=== PATIENT | female | born 1965 | race Caucasian/White ===

== ENCOUNTER → 2023-03-23 12:27 | Outpatient (REF) | payer OTHER, SELFPAY | LOC: WDC 12:27 | PROVIDERS: ATTENDING PHYSICIAN Physician Assistant Medical | DX: Z12.31 Encounter for screening mammogram for malignant neoplasm of breast (principal) | CPT/HCPCS: 77063; 77067 ==

== ENCOUNTER → 2024-02-18 11:19 | Outpatient (REF) | payer OTHER, SELFPAY ==
[2024-02-18 20:38] LABS: Rubella Negative
[2024-02-20 11:01] LABS: Quantiferon Mitogen minus NIL 9.93 IU/mL; Quantiferon NIL 0.07 IU/mL; Quantiferon Plus TB1 minus NIL 0.02 IU/mL (<=0.34); Quantiferon Plus TB2 minus NIL 0.03 IU/mL (<=0.34); Quantiferon TB Gold Plus Negative (Negative)
[2024-02-20 14:16] LABS: Mumps Virus IgG Equivocal; Rubeola (Measles) IgG Positive; Varicella Zoster IgG (VZV) Positive
== END ==
LOC: OHS 11:19
PROVIDERS: ATTENDING PHYSICIAN Nurse Practitioner Family
DX: Z23 Encounter for immunization (principal)
CPT/HCPCS: 36415; 86480; 86735; 86762; 86765; 86787

== ENCOUNTER → 2024-04-01 12:43 | Outpatient (REF) | payer OTHER, SELFPAY | LOC: HWWDC 12:43 | PROVIDERS: ATTENDING PHYSICIAN Obstetrics & Gynecology Gynecology; FAMILY PHYSICIAN Physician Assistant Medical | DX: Z12.31 Encounter for screening mammogram for malignant neoplasm of breast (principal) | CPT/HCPCS: 77063; 77067 ==

== ENCOUNTER → 2024-04-08 08:45 | Outpatient (REF) | payer OTHER, SELFPAY | LOC: WDC 08:45 | PROVIDERS: ATTENDING PHYSICIAN Obstetrics & Gynecology Gynecology; FAMILY PHYSICIAN Physician Assistant Medical | DX: R92.8 Other abnormal and inconclusive findings on diagnostic imaging of breast (principal) | CPT/HCPCS: 76642; 77065 ==

== ENCOUNTER → 2024-04-10 06:25 | Outpatient (REF) | payer OTHER, SELFPAY ==
--- NOTE | 2024-04-10 09:51 | OID.BR.INTR ---
[facility] Breast Navigator - Initial
- -
Date of Contact: 04/10/24
Met with patient. Patient given written information on navigator services and support services available at [facility]. Will follow up as needed per protocol.
== END ==
LOC: WDC 06:25
PROVIDERS: ATTENDING PHYSICIAN Obstetrics & Gynecology Gynecology; FAMILY PHYSICIAN Physician Assistant Medical
DX: R92.1 Mammographic calcification found on diagnostic imaging of breast (principal)
CPT/HCPCS: 88305; 19081; 76098; 88342; 88360; A4648

== ENCOUNTER → 2024-04-21 12:49 | Outpatient (REF) | payer OTHER, SELFPAY | LOC: WDC 12:49 | PROVIDERS: ATTENDING PHYSICIAN Surgery; FAMILY PHYSICIAN Physician Assistant Medical | DX: R92.2 Inconclusive mammogram (principal); N60.91 Unspecified benign mammary dysplasia of right breast | CPT/HCPCS: 76641 ==

== ENCOUNTER → 2024-04-28 07:08 | Outpatient (REF) | payer OTHER, SELFPAY | LOC: WDC 07:08 | PROVIDERS: ATTENDING PHYSICIAN Surgery; FAMILY PHYSICIAN Physician Assistant Medical | DX: N60.91 Unspecified benign mammary dysplasia of right breast (principal) | CPT/HCPCS: 19281; A4648 ==

== ENCOUNTER 2024-04-29 06:08 | Day surgery (SDC) | payer OTHER, SELFPAY ==
[2024-04-21 12:18] LABS: Hematocrit 39.6 % (37.0-47.0); Hemoglobin 13.1 g/dL (12.0-16.0); Mean Corp Hgb Conc. 33.1 g/dL (33.0-37.0); Mean Corpuscular Hgb 30.2 pg (27.0-31.0); Mean Corpuscular Volume 91.2 fL (81.0-99.0); Mean Platelet Volume 9.6 fL (7.4-10.4); Platelet Count 383 10^3/uL (130-400); Red Blood Cell Count 4.34 10^6/uL (4.20-5.40); Red Cell Dist. Width 12.7 % (11.5-14.5); White Blood Cell Count 4.7 10^3/uL (4.8-10.8)
[2024-04-21 12:41] LABS: ALT (SGPT) 11 U/L (0-35); AST (SGOT) 17 U/L (14-36); Albumin 3.9 g/dl (3.5-5.0); Alkaline Phosphatase 60 U/L (38-126); Blood Urea Nitrogen 11 mg/dl (7-17); Calcium 9.3 mg/dl (8.4-10.2); Carbon Dioxide 25 mmol/L (22-30); Chloride 106 mmol/L (98-107); Glucose 87 mg/dl (70-99); Potassium 4.1 mmol/L (3.5-5.1); Sodium 137 mmol/L (135-145); Total Bilirubin 0.6 mg/dl (0.2-1.3); Total Protein 6.2 g/dl (6.3-8.2); eGFR > 60.00
[2024-04-21 12:58] LABS: Prealbumin (Transthyretin) 25.1 mg/dl (17.6-36.0)
[2024-04-21 13:11] LABS: Vitamin D, 25-OH*** 30.9 ng/mL (30-80)
[2024-04-21 13:54] VITALS: BMI 21.2
[2024-04-29 07:00] VITALS: BMI 21.2
[2024-04-29 07:02] VITALS: BP 114/74
[2024-04-29] MEDS: TYLENOL 1000 MG PO (07:08)
[2024-04-29] MEDS: NORMOSOL-R/PLASMALYTE-A 1000 IV (07:15)
[2024-04-29 08:36] VITALS: BP 102/61
--- NOTE | 2024-04-29 08:36 | W.IMMPOSTOP ---
Surgical Immed Post Op Note
-
Primary Surgeon: Carol
Assisting Surgeon: None
Pre-op Diagnosis: Right breast atypical ductal hyperplasia
Post-op Diagnosis: Right breast atypical ductal hyperplasia
Procedure Performed: Right localized lumpectomy
Anesthesia Type: TIVA
Specimen / Cultures: Right lumpectomy
Estimated Blood Loss: 2cc
Complications: None
Operative Findings: Clip and reflector in specimen
--- NOTE | 2024-04-29 08:38 | OR.RPT ---
Operative Report
Operative Report
Date of Surgery: 04/29/24
Surgeon: Carol
Pre-Op DX: Right breast atypical ductal hyperplasia
Post-Op DX: Right breast atypical ductal hyperplasia
Procedure: Right localized lumpectomy
The patient is a 59-year-old female who experienced an interval change on screening mammography leading to stereotactic core biopsy showing atypical ductal hyperplasia of the right breast. She presents now for right localized lumpectomy and
possible oncoplastic closure. On the day prior to the procedure the patient presented to the breast imaging center and had a Radha reflector placed.
The day of surgery the patient presented to same-day surgical services. She was prepped and DVT and antibiotic prophylaxis were provided. She verified site and procedure. She was taken to the operating room and in the supine position intravenous
sedation was delivered.
Appropriate timeout was performed by all staff and the field was tissues were anesthetized with 1% lidocaine plain. A superior circumareolar incision was made sharply with the blade and oncoplastic plane was entered and elevated using the cautery.
The RADHA probe was used to sounded out the signal and a wide lumpectomy was performed using the cautery. Time out of body was noted and the specimen was oriented for the pathologist. There was a strong Radha signal within the specimen. Specimen
radiography confirmed the presence of biopsy clip and Radha reflector within it.
Hemostasis was maintained with the cautery. Marcaine 0.5% plain was instilled and the wound was closed with a simple interrupted 3-0 plain on deep intermediate and subcutaneous tissue and skin was closed with a running subcuticular 4-0 Monocryl.
Surgical glue and a sterile compressive dressing were applied. All sponge needle instrument counts were correct and the patient was transferred back to the same-day surgical services for recovery
()
[2024-04-29 08:45] VITALS: BP 97/60
[2024-04-29 09:00] VITALS: BP 106/72
[2024-04-29] MEDS: ROXICODONE 5 MG PO (09:04)
[2024-04-29 09:16] VITALS: BP 114/78
== END 2024-04-29 09:40 | disposition home or self-care (01) ==
LOC: SDS 06:08
PROVIDERS: ATTENDING PHYSICIAN Surgery; FAMILY PHYSICIAN Physician Assistant Medical
DX: N60.91 Unspecified benign mammary dysplasia of right breast (principal); N64.89 Other specified disorders of breast
CPT/HCPCS: 19301; 88307; 36415; 76098; 80053; 82306; 84134; 85027; 88341; 88342; 93005; A4648

== ENCOUNTER → 2024-09-18 10:45 | Outpatient (REF) | payer OTHER, SELFPAY | LOC: MRI 3T 10:45 | PROVIDERS: ATTENDING PHYSICIAN Surgery; FAMILY PHYSICIAN Physician Assistant Medical | DX: N60.99 Unspecified benign mammary dysplasia of unspecified breast (principal); R92.30 Dense breasts, unspecified | CPT/HCPCS: 77049; A9585 ==